=== PATIENT | male | born 1970 | race Caucasian/White ===

== ENCOUNTER → 2016-09-05 | Outpatient (CLI) | payer OTHER ==
[~2016-09-05] MED LIST: ASPCH81 PO; ASPEC325 PO; HYDR25TA4 PO; KETO10TA PO; MULTTAB58 PO; OMEG10007 PO; OXYC-57 PO; PROP20TA67 PO; super beta prostate PO
--- NOTE | 2016-09-05 08:16 | DIAGNOSTIC IMAGING REPORT ---
PET/CT SKULL-THIGH CLINICAL HISTORY: LYMPHOMA COMPARISON STUDY: 06/06/2016 FINDINGS: The patient was injected with 14.6 mCi of F 18 labeled FDG. Following the standard induction phase, PET/CT scanning was performed from the skull base the upper thigh region. Activity within neck is felt to be physiologic. The previously identified FDG avid cervical lymph nodes are no longer evident. There is mild tonsillar activity without evidence of discrete mass. This may be physiologic. Within the chest, there is no pathologic rebecca or parenchymal activity. Within the abdomen and pelvis, there is physiologic urinary tract and bowel activity. There is no pathologic hepatic activity. There are persistent mildly FDG avid left iliac chain lymph nodes. These remain similar in size the preceding examination and remains mildly FDG avid. The study is somewhat limited from a technical standpoint due to the patient's large body habitus. IMPRESSION: 1. Interval resolution of the pathologic FDG activity within cervical lymph nodes 2. No significant change in the mildly FDG avid left iliac chain lymph nodes. Electronically signed by: Kyle Kilpatrick M.D. 09/05/2016 8:14 AM
== END | disposition home or self-care (01) ==
LOC: C.PET 06:10
PROVIDERS: ATTEND Internal Medicine Hematology & Oncology
DX: C81.71 Other Hodgkin lymphoma, lymph nodes of head, face, and neck (principal)

== ENCOUNTER → 2016-11-07 | Outpatient (CLI) | payer OTHER ==
--- NOTE | 2016-11-07 18:01 | DIAGNOSTIC IMAGING REPORT ---
MRI OF THE RIGHT KNEE CLINICAL HISTORY: Right knee pain. COMPARISON STUDY: No priors. TECHNIQUE: MRI of the right knee was performed utilizing proton density, T1, and T2-weighted sequences in the axial, sagittal, coronal planes. IV contrast was not administered for this examination. Note that interpretation is suboptimal without plain film correlate. FINDINGS: Menisci: The body of the medial meniscus appears slightly truncated and intrasubstance tearing is suspected involving the body and posterior horn. This does not clearly extend to the articular surface. No flipped fragment is identified. The lateral meniscus is Intact. Ligaments: Findings are consistent with rupture of the anterior cruciate ligament. The posterior cruciate ligament is intact. There is fluid seen on both sides of the medial collateral ligament suggesting strain. The fibers of the ligament are intact. The lateral collateral complex is preserved. Extensor mechanism: The extensor mechanism is intact. Hoffa's fat pad is normal in appearance. Articular cartilage and bone: The articular cartilage is intact and well maintained all 3 compartments. Bony contusion is seen within the posterior aspect of the tibial plateau both medially and laterally. There is no MRI evidence of fracture. Joint effusion: There is a small joint effusion. Soft tissues: The musculature surrounding the knee joint is normal in bulk and signal intensity. IMPRESSION: 1. Findings are consistent with rupture of the anterior cruciate ligament. 2. Suspect intrasubstance tearing involving the body and posterior horn of the medial meniscus. 3. There are bony contusions identified within the posterior tibia. 4. Fluid on both sides of the medial collateral ligament suggests strain. The fibers are intact. 5. Small joint effusion. 6. The posterior cruciate ligament, the lateral collateral ligament complex, and the lateral meniscus are preserved. Electronically signed by: Agustín Bennett M.D. 11/07/2016 5:59 PM Dictated Date/Time: 11/07/2016 5:53 PM
== END | disposition home or self-care (01) ==
LOC: C.MRIBC 16:39
PROVIDERS: ATTEND Orthopaedic Surgery
DX: S83.511A Sprain of anterior cruciate ligament of right knee, initial encounter (principal); X58.XXXA Exposure to other specified factors, initial encounter; M25.461 Effusion, right knee

== ENCOUNTER → 2016-11-21 | Day surgery (SDC) | payer OTHER ==
[2016-11-14 11:19] VITALS: Ht 177.8 cm; Wt 134.7 kg
--- NOTE | 2016-11-14 11:54 | PAT Medication Instructions ---
Service Date Nov 14, 2016. Current Home Medication List Aspirin (Aspirin Tab-Chewable *), 81 MG PO QAM Fish Oil (Powell-3), 1 CAP PO QAM Hydrochlorothiazide (Hctz), 25 MG PO QAM Multiple Vitamin (Multivitamin), 1 TAB PO QAM Propranolol (Inderal), 40 MG PO QAM [super beta prostate], 1 TAB PO QAM Medication Instructions For Your Scheduled Surgery - Check with surgeon for instructions: Aspirin (Aspirin Tab-Chewable *), 81 MG PO QAM - Hold the following medications starting 11/15/16: Fish Oil (Powell-3), 1 CAP PO QAM - Hold the following medications the morning of surgery: [super beta prostate], 1 TAB PO QAM Hydrochlorothiazide (Hctz), 25 MG PO QAM Multiple Vitamin (Multivitamin), 1 TAB PO QAM - Take the following medications the morning of surgery with a sip of water: Propranolol (Inderal), 40 MG PO QAM If you have any questions please call us at [phone] (Afsaneh Sherwood PA-C) or [phone] or [phone]
[2016-11-14 12:48] LABS: HEMATOCRIT 44.3 % (42-52); MEAN CORPUSCULAR HEMOGLOBIN 29.3 pg (25-34); MEAN CORPUSCULAR HGB CONC 36.1 g/dl (32-36); MEAN PLATELET VOLUME 10.9 fL (7.4-10.4); PLATELET COUNT 199 K/uL (130-400); RED BLOOD COUNT 5.47 M/uL (4.7-6.1); WHITE BLOOD COUNT 6.47 K/uL (4.8-10.8)
[2016-11-14 13:06] LABS: CREATININE 1.2 mg/dl (0.60-1.40); POTASSIUM 3.6 mmol/L (3.5-5.1)
[~2016-11-21] VITALS: Ht 177.8 cm; Wt 134.7 kg
[~2016-11-21] MED LIST changes: +ATROPINE SULFATE 0.1 MG/ML 5ML SYR IV PRN; +CEFAZOLIN 2000 MG/60 ML D5W IV SCH; +EpINEphrine INJ 1MG/ML AMP 1 MG/ML AMP ONE; +FENTANYL CITRATE INJ 50 MCG/1 ML 2 ML VIAL ONE; +GLYCOPYRROLATE INJ 0.2 MG/ML VIAL ONE; +HYDROmorphone INJ 0.5 MG/0.5 ML SYR ONE; +KETOROLAC TROMETHAMINE 30 MG/ML VIAL IV. PRN; +KETOROLAC TROMETHAMINE 30 MG/ML VIAL ONE; +LABETALOL HCL IV 5 MG/ML 20ML IV PRN; +LACTATED RINGER'S 1000ML 1,000 ML IV SCH; +LACTATED RINGER'S 1000ML 500 ML IV ONE; +LIDOCAINE HCL 2% 2 ML VIAL (20MG/ML) ONE; +MIDAZOLAM HCL 1 MG/ML 2ML VIAL ONE; +ONDANSETRON INJ 2 MG/ML 2 ML VIAL IV PRN; +OXYCODONE/ACETAMINOPHEN 5-325 TAB PO PRN; +PROPOFOL IV EMULSION 10 MG/ML 20 ML VIAL IV ONE; +ROCURONIUM BROMIDE 10 MG/ML 5 ML VIAL ONE; +ROPIVACAINE 0.5% 5 MG/ML 30 ML VIAL ONE; +SODIUM CHLORIDE 0.9% 1000ML 1,000 ML IV SCH; +VANCOMYCIN HCL 1000MG/20ML VIAL IV SCH; +VANCOMYCIN INJ 2,000 MG in SODIUM CHLORIDE 0.9% 500ML 500 ML IV SCH; +WATER, STERILE FOR INJ 10 ML VIAL ONE
--- NOTE | 2016-11-21 09:07 | History & Physical Bridge - [place] ---
H&P Re-Evaluation Bridge Note: I have examined the patient, reviewed the History & Physical and in the interval since the performance of the History & Physical I have noted the following changes of clinical significance: No changes noted
--- NOTE | 2016-11-21 13:37 | Discharge Instructions-SurgCtr ---
Discharge Instructions Date of Service Nov 21, 2016. Visit Reason for Visit: Right Knee Acl Rupture Discharge Discharge Diagnosis / Problem: RIGHT ACL TEAR Discharge Goals Goal(s): Improve function, Therapeutic intervention Medications Stopped Medications Name(s): FISH OIL Activity Recommendations Activity Limitations: per Instructions/Follow-up section Weightbearing Status: Right weightbearing (as tolerated WITH BRACE ) Anesthesia . Post Anesthesia Instructions: If you have had General Anesthesia or IV Sedation: * Do not drive today. * Resume driving when surgeon permits. * Do not make important decisions or sign legal documents today. * Call surgeon for: 1. Temperature elevations greater than 101 degrees F. 2. Uncontrollable pain. 3. Excessive bleeding. 4. Persistent nausea and vomiting. 5. Medication intolerance (nausea, vomiting or rash). * For nausea and vomiting use only clear liquids such as: tea, soda, bouillon until nausea subsides, then gradually increase diet as tolerated. * If you have any concerns or questions, call your surgeon's office. If physician is unavailable and it is an emergency, call 911 or go to the nearest emergency room. . Instructions / Follow-Up Instructions / Follow-Up MEDICATIONS: * Resume previous medications unless instructed otherwise by your surgeon. * Always take pain medication on a full stomach or with food to avoid upset stomach. * Do not drink alcohol or drive while taking narcotics. * Ibuprofen or Tylenol may be taken if narcotic not needed. NO IBUPROFEN WHILE TAKING TORADOL SPECIAL CARE INSTRUCTIONS: __ None _X_ Keep extremity elevated and iced x 48 hours; apply ice 20-30 minutes 8-10 times/day. May remove at night. _X_ Crutches __ May discard when able _X_ Brace/Post-op shoe __ 24 hrs/day __ Remove at night _X_ Dressing __ Maintain until seen in office, may shower with plastic over site _X_ Remove dressings in 24-48 hours and then may shower _X_ Cover incisions with band-aids after showering _X_ Do not remove steri-strips Call physician if chills or temperature rises above 102 degrees or pain unrelieved by prescribed pain medications. Office [phone] FOLLOW UP IN 2 WEEKS Diet Recommendations Home Diet: no limitations Procedures Procedures Performed: Right Knee Arthroscopy, Anterior Cruciate Ligament Reconstruction, Hamstring Autograft With Anterior Tibialis Supplementation, Partial Medial Menisectomy Pending Studies Studies pending at discharge: no Medical Emergencies . Who to Call and When: Medical Emergencies: If at any time you feel your situation is an emergency, please call 911 immediately. . Non-Emergent Contact Non-Emergency issues call your: Primary Care Provider, Surgeon . . "Provider Documentation" section prepared by Isrrael Landrum.
[2016-11-21] MEDS: HYDROmorphone INJ 2 MG/ML SYR/VIAL IV PRN ×2 (13:47→13:55)
[2016-11-21 14:44] VITALS: TEMP 37.2
[2016-11-21 15:09] VITALS: BP 129/94; PULSE 73; O2SAT 98
--- NOTE | 2016-11-21 15:17 | Anesthesia Progress Nt - [facility] ---
Anesthesia Post Op Note Date & Time Nov 21, 2016 at 15:18 Vital Signs Pain Intensity: 4 Vital Signs Past 12 Hours Date Time Temp Pulse Resp B/P Pulse Ox O2 Delivery O2 Flow Rate FiO2 11/21/16 15:09 73 18 129/94 98 Room Air 11/21/16 14:44 37.2 70 20 160/106 97 Room Air 11/21/16 14:26 77 17 11/21/16 14:26 76 17 97 11/21/16 14:25 162/90 11/21/16 14:25 168/98 11/21/16 14:24 37.0 69 18 168/98 95 Room Air 11/21/16 14:21 79 20 11/21/16 14:21 79 20 96 11/21/16 14:20 136/96 11/21/16 14:16 75 26 97 11/21/16 14:16 76 26 11/21/16 14:15 142/85 11/21/16 14:11 79 13 11/21/16 14:11 77 13 100 11/21/16 14:10 151/84 11/21/16 14:06 70 23 100 11/21/16 14:06 73 23 11/21/16 14:05 143/85 11/21/16 14:04 73 18 99 11/21/16 14:04 72 18 11/21/16 14:00 155/93 11/21/16 13:59 75 12 100 11/21/16 13:59 75 12 11/21/16 13:55 136/80 11/21/16 13:54 80 18 11/21/16 13:54 83 18 100 11/21/16 13:50 148/84 11/21/16 13:49 83 19 11/21/16 13:49 82 19 100 11/21/16 13:45 150/95 11/21/16 13:44 68 18 11/21/16 13:44 67 18 100 11/21/16 13:40 152/94 11/21/16 13:39 66 17 100 11/21/16 13:39 65 17 11/21/16 13:35 171/102 11/21/16 13:34 73 16 11/21/16 13:34 73 16 99 11/21/16 13:34 37.4 92 20 140/107 99 Diffusion Mask 6 11/21/16 11:05 64 16 129/79 99 Diffusion Mask 5 11/21/16 08:16 36.5 69 16 154/129 95 Room Air Notes Mental Status: alert / awake / arousable, participated in evaluation Pt Amnestic to Procedure: Yes Nausea / Vomiting: adequately controlled Pain: adequately controlled Airway Patency, RR, SpO2: stable & adequate BP & HR: stable & adequate Hydration State: stable & adequate Anesthetic Complications: no major complications apparent
--- NOTE | 2016-11-21 16:29 | [facility] Post Operative Brief Note ---
Immediate Operative Summary Operative Date Nov 21, 2016. Pre-Operative Diagnosis Right Knee Anterior Cruciate Ligament Rupture Post-Operative Diagnosis Same + medial meniscus tear + DJD Procedure(s) Performed Right Knee Arthroscopy, Anterior Cruciate Ligament Reconstruction, Hamstring Autograft With Anterior Tibialis Allograft Supplementation, Partial Medial Menisectomy Surgeon Dr. Darya Isidro Monumental Stonemason Surgeon(s) Chencho Landrum PA-C Estimated Blood Loss Minimal Findings ACL Tear + Medial Meniscus Tear + DJD Specimens None Anesthesia General Complication(s) None Disposition Recovery Room / PACU
--- NOTE | 2016-11-21 23:38 | OPERATIVE REPORT ---
DATE OF OPERATION: 11/21/2016 SURGEON: Dr. Alcon Isidro. CAT[employer]ULT AND ARRESTING GEAR OFFICER: BRAXTON Cisneros. PREOPERATIVE DIAGNOSES: 1. Right anterior cruciate ligament deficient knee. 2. Right knee mild degenerative arthritis. POSTOPERATIVE DIAGNOSES: 1. Right knee anterior cruciate ligament deficient knee. 2. Right knee mild degenerative joint disease. 3. Right knee medial meniscus tear. PROCEDURE PERFORMED: 1. Right knee exam under anesthesia. 2. Right knee diagnostic arthroscopy. 3. Right knee arthroscopic partial medial meniscectomy. 4. Right knee arthroscopic ACL reconstruction with gracilis autograft supplemented with tibialis anterior allograft. COMPLICATIONS: None. ESTIMATED BLOOD LOSS: Minimal. TOURNIQUET TIME: 73 minutes at 300 mmHg. ANESTHESIA: General with adductor canal block. DRAINS: None. SPECIMENS: None. OPERATIVE INDICATIONS: The patient is a 46-year-old fairly active gentleman who injured his knee about a month ago skiing out in [place]. He was seen in clinic and diagnosed with an ACL tear which was confirmed by MRI. Treatment options were explained. The patient strongly desiring surgical reconstruction. OPERATIVE FINDINGS: Examination under anesthesia of the right knee revealed just very small knee effusion. His range of motion was full extension to 135 degrees of flexion. He had a positive Shilpa, grade 2 pivot, negative anterior drawer, negative posterior drawer, no varus or valgus instability, Lizeth's is negative for mechanical symptoms. There is no posterolateral rotatory instability. ARTHROSCOPIC FINDINGS: Arthroscopic findings revealed small knee effusion. He had diffuse grade 2 changes of the undersurface of the patella. The trochlea was well preserved. In the intercondylar notch, the ACL was torn near the femoral origin. PCL was intact. In the medial compartment, there were some diffuse grade 2 changes of the medial femoral condyle. He did have a small inner rim medial meniscus tear. In the lateral compartment, the articular surface revealed some age-related changes. There was some slight fraying of the inner rim of the meniscus but no tearing. OPERATIVE PROCEDURE: The patient was taken to the operating room, identified and placed on the operating table in supine position. All contact areas were appropriately padded. IV antibiotics were provided by anesthesia team. An adductor canal block had been provided in the holding area. A right thigh tourniquet was then placed. The right knee was then examined under anesthesia with findings as described above. The right leg was then prepped and draped in the usual sterile fashion. The right leg was elevated and exsanguinated with Esmarch and tourniquet was placed at 300 mmHg. Attention was first drawn toward harvesting the hamstring tendons. A 4 cm incision was made directly over the hamstring tendons at its insertion. Sharp dissection was carried out through the subcutaneous tissues down to the level of the sartorius fascia. The subcutaneous tissues were mobilized circumferentially. An oblique incision was made in the sartorius fascia above the hamstring tendons. The tendons were then taken sharply off the anterior face of the tibia. A #2 Ti-Cron whipstitch was placed in the end of each tendon. I then harvested the gracilis tendon and got a nice tendon. Upon pulling on the semitendinosis tendon even before I put the tendon stripper on, I pulled it and it just pulled right out of the leg. It was very short and amputated shortly above where the sutures were placed. The exact etiology of this was unclear as the tendon insertion seemed quite healthy and appropriate. In light of this, we elected to use the gracilis tendon and used the tibialis anterior allograft to act as the adjacent semitendinosis tendon. Tibialis anterior allograft was obtained. We trimmed this down to equal sides and just slightly bigger than the gracilis. #2 Ti-Cron whipstitch was placed down in the end of each tendon and they were cut to 21 cm in length. They were then folded over and fit snugly through a 9 tunnel. The graft was then placed on the graft board until ready for implantation. During graft preparation, routine right knee arthroscopy was then performed through typical anteromedial and anterolateral portals. A superolateral outflow portal was established for outflow. The remnant of the ACL was excised. Notchplasty was performed. Attention was then drawn to the medial compartment. With the use of motorized hand controlled instruments, the inner rim of the medial meniscus was excised. This was clearly in the white zone and was a fairly small piece. Once this was complete, attention was drawn to the ACL reconstruction. With the use of the tibial guide set at 50 degrees, a guidewire was placed in the area of the proposed femoral tunnel. This was overreamed with a 9 mm solid reamer. The tunnel was cleaned off all debris. A 7 mm over the top guide was placed through the anteromedial portal. The knee was maximally flexed. This was overdrilled with the Endobutton drill bit. The tunnel length measured 42 mm. A 20 mm closed loop Endobutton was selected. The femoral tunnel was then drilled for a distance of 30 mm. This was drilled with a 9 mm Montier reamer. The tunnels were cleaned off all debris. The graft was then looped over a 20 mm closed loop Endobutton. The Endobutton was used to pass the graft through the tibial tunnel up into the femoral tunnel and the Endobutton was then flipped. The knee was cycled several times and brought out into full extension. There was no impingement. The graft was then tensioned in full extension with 30 pounds of tension using the Intrafix tensioner. The tunnel was then dilated. A large Biocryl Intrafix sheath was placed followed by a 7/9 Biocryl Intrafix screw. This provided excellent fixation. The knee was examined. There was no Shilpa and no pivot. Arthroscope was placed back in the knee joint. The graft was appropriately tensioned in flexion and extension. The scope was then placed throughout the knee and all extraneous debris was removed. The arthroscopic instruments were then removed from the joint. The portals were then closed with 3-0 Prolene suture in a simple fashion. The knee was injected with 30 mL of 0.5% ropivacaine with epinephrine and 30 mg of Toradol. The tourniquet was then let down for a final tourniquet time of 73 minutes. The tibial wound was then irrigated. The sartorius fascia was then closed with #1 Vicryl suture in a [id number] fashion. The subcutaneous tissues were then closed with 2-0 Dexon suture in a buried interrupted fashion. Skin was closed with 3-0 Prolene suture in a subcuticular fashion. The leg was then cleaned and dried, and a sterile dressing of Steri-Strip, Xeroform, 4 x 4's, ABD pad, sterile cast padding, Matthew bandage, cold pack and knee immobilizer were applied. The patient then brought out of general anesthesia and transferred to the recovery room in stable condition. The patient tolerated the procedure well with no complications. All needle and sponge counts were correct at the end of the operation. I attest to the content of the Intraoperative Record and any orders documented therein. Any exceptions are noted below. MTDD
== END | disposition home or self-care (01) ==
LOC: X.SURG 06:54
PROVIDERS: ATTEND Orthopaedic Surgery Sports Medicine
DX: S83.511A Sprain of anterior cruciate ligament of right knee, initial encounter (principal); S83.241A Other tear of medial meniscus, current injury, right knee, initial encounter; M17.11 Unilateral primary osteoarthritis, right knee; I10 Essential (primary) hypertension; K21.9 Gastro-esophageal reflux disease without esophagitis; C81.90 Hodgkin lymphoma, unspecified, unspecified site; Y93.23 Activity, snow (alpine) (downhill) skiing, snowboarding, sledding, tobogganing and snow tubing; Y92.89 Other specified places as the place of occurrence of the external cause; Y99.8 Other external cause status; Z88.8 Allergy status to other drugs, medicaments and biological substances

== ENCOUNTER → 2017-01-02 | Outpatient (CLI) | payer OTHER ==
[~2017-01-02] MED LIST changes: -ASPCH81 PO; -ATROPINE SULFATE 0.1 MG/ML 5ML SYR IV PRN; -CEFAZOLIN 2000 MG/60 ML D5W IV SCH; -EpINEphrine INJ 1MG/ML AMP 1 MG/ML AMP ONE; -FENTANYL CITRATE INJ 50 MCG/1 ML 2 ML VIAL ONE; -GLYCOPYRROLATE INJ 0.2 MG/ML VIAL ONE; -HYDROmorphone INJ 0.5 MG/0.5 ML SYR ONE; -KETO10TA PO; -KETOROLAC TROMETHAMINE 30 MG/ML VIAL IV. PRN; -KETOROLAC TROMETHAMINE 30 MG/ML VIAL ONE; -LABETALOL HCL IV 5 MG/ML 20ML IV PRN; -LACTATED RINGER'S 1000ML 1,000 ML IV SCH; -LACTATED RINGER'S 1000ML 500 ML IV ONE; -LIDOCAINE HCL 2% 2 ML VIAL (20MG/ML) ONE; -MIDAZOLAM HCL 1 MG/ML 2ML VIAL ONE; -ONDANSETRON INJ 2 MG/ML 2 ML VIAL IV PRN; -OXYCODONE/ACETAMINOPHEN 5-325 TAB PO PRN; -PROPOFOL IV EMULSION 10 MG/ML 20 ML VIAL IV ONE; -ROCURONIUM BROMIDE 10 MG/ML 5 ML VIAL ONE; -ROPIVACAINE 0.5% 5 MG/ML 30 ML VIAL ONE; -SODIUM CHLORIDE 0.9% 1000ML 1,000 ML IV SCH; -VANCOMYCIN HCL 1000MG/20ML VIAL IV SCH; -VANCOMYCIN INJ 2,000 MG in SODIUM CHLORIDE 0.9% 500ML 500 ML IV SCH; -WATER, STERILE FOR INJ 10 ML VIAL ONE
[2017-01-02 12:09] LABS: BASO % 0.4 %; BASO ABS # 0.03 K/uL (0-0.2); COMPLETE YES; HEMATOCRIT 44.2 % (42-52); IG% 0.3 %; LYMPH % 18.8 %; LYMPH ABS # 1.44 K/uL (1.2-3.4); MEAN CELL VOLUME 84.8 fL (80-100); MEAN CORPUSCULAR HEMOGLOBIN 29.6 pg (25-34); MEAN CORPUSCULAR HGB CONC 34.8 g/dl (32-36); MEAN PLATELET VOLUME 11.4 fL (7.4-10.4); MONO % 8.9 %; NEUT % 67.6 %; PLATELET COUNT 181 K/uL (130-400); RED BLOOD COUNT 5.21 M/uL (4.7-6.1); WHITE BLOOD COUNT 7.67 K/uL (4.8-10.8)
[2017-01-02 12:26] LABS: ALT/SGPT 45 U/L (12-78); AST/SGOT 16 U/L (15-37); BLOOD UREA NITROGEN 21 mg/dl (7-18); BUN/CREATININE RATIO 16.2 (10-20); CALCIUM 8.9 mg/dl (8.5-10.1); CARBON DIOXIDE 31 mmol/L (21-32); CHLORIDE 105 mmol/L (98-107); GLUCOSE 130 mg/dl (70-99); POTASSIUM 3.8 mmol/L (3.5-5.1); SODIUM 140 mmol/L (136-145)
[2017-01-02 12:30] LABS: ALB/GLOB RATIO 1.3 (0.9-2); ALKALINE PHOSPHATASE 80 U/L (45-117)
== END | disposition home or self-care (01) ==
LOC: C.LAB 10:54
PROVIDERS: ATTEND Internal Medicine Hematology & Oncology
DX: C81.71 Other Hodgkin lymphoma, lymph nodes of head, face, and neck (principal)

== ENCOUNTER → 2017-01-03 | Outpatient (CLI) | payer OTHER ==
[~2017-01-03] MED LIST changes: +OPTIRAY 320 IV PRN
--- NOTE | 2017-01-03 16:11 | DIAGNOSTIC IMAGING REPORT ---
ABDOMEN AND PELVIS CT WITH IV AND ORAL CONTRAST CT DOSE: 1630.19 mGy.cm HISTORY: Lymphoma LYMPHOMA TECHNIQUE: Multiaxial CT images of the abdomen and pelvis were performed following the use of intravenous and oral contrast. COMPARISON STUDY: PET scan dated 09/05/2016 FINDINGS: Lung bases are clear. Liver shows mild fatty infiltration. Spleen is unremarkable. Pancreas gallbladder and kidneys are within normal limits. There are several small left iliac chain and low Aortic nodes unchanged from the prior study. There is no significant inguinal adenopathy. Bowel pattern is nonobstructive throughout. Mesentery is unremarkable. IMPRESSION: Stable examination of the abdomen and pelvis compared to the patient's prior PET/CT scan. Several small nodes of the low periaortic and left pelvic region unchanged. Electronically signed by: Homer Pat M.D. 01/03/2017 4:09 PM Dictated Date/Time: 01/03/2017 4:07 PM
== END | disposition home or self-care (01) ==
LOC: C.CTS 15:32
PROVIDERS: ATTEND Internal Medicine Hematology & Oncology
DX: C81.71 Other Hodgkin lymphoma, lymph nodes of head, face, and neck (principal)

== ENCOUNTER → 2017-07-01 | Outpatient (CLI) | payer OTHER ==
[~2017-07-01] MED LIST changes: -OXYC-57 PO
--- NOTE | 2017-07-01 15:22 | DIAGNOSTIC IMAGING REPORT ---
SOFT TISSUE NECK WITH CLINICAL HISTORY: X lymphoma TECHNIQUE: Transaxial acquisition with multi axial reformatted images COMPARISON STUDY: 05/27/2015 FINDINGS: The palpable nodular density previously described in the left soft tissue neck has resolved. Major salivary glands currently including parotid and submandibular glands appear unremarkable. There is no significant residual rebecca change. Structures the glottic and subglottic regions are unremarkable. There is no significant cervical adenopathy. IMPRESSION: Negative study. Adenopathy previously described has resolved. No acute process. The above report was generated using voice recognition software. It may contain grammatical, syntax or spelling errors. Electronically signed by: Homer Pat M.D. 07/01/2017 3:20 PM Dictated Date/Time: 07/01/2017 3:16 PM
--- NOTE | 2017-07-01 15:27 | DIAGNOSTIC IMAGING REPORT ---
CT SCAN OF THE CHEST, ABDOMEN, AND PELVIS WITH IV CONTRAST CLINICAL HISTORY: Lymphoma. COMPARISON STUDY: PET/CT dated 09/05/2016. Abdominal CT dated 01/03/2017. Chest x-ray dated 07/28/2006. TECHNIQUE: Following the IV administration of 119 of Optiray 320, CT scan of the chest, abdomen, and pelvis was performed from the thoracic inlet to the proximal femora. Images are reviewed in the axial, sagittal, and coronal planes. IV contrast was administered without complication. Automated dose control exposure was utilized. A dose lowering technique was utilized adhering to the principles of ALARA. FINDINGS: CHEST: Thyroid: Imaged portions of the thyroid gland are normal in size and attenuation. Thoracic aorta: The thoracic aorta is normal in caliber and demonstrates standard 3-vessel arch anatomy. No dissection is seen. Pulmonary vasculature: The pulmonary trunk is normal in caliber. There are no filling defects identified in the central pulmonary vessels to indicate pulmonary embolus. Note that this examination was not protocoled for evaluation of the pulmonary arteries. Heart: The heart is normal in size and configuration, and without pericardial effusion. Lungs and pleural spaces: There is a 2 mm left apical pulmonary nodule seen on image #50. This is of low suspicion and unchanged from the 09/05/2016 PET examination. The lungs and pleural spaces are otherwise clear. The trachea and central airways are patent. Mediastinum: There is no mediastinal lymphadenopathy. Sanna: Clear. Axillae: There is no axillary lymphadenopathy. Bony thorax: No lytic or blastic lesions are identified. ABDOMEN AND PELVIS: Liver: The contrast-enhanced liver is enlarged, measuring 22 cm in length. The liver demonstrates diffusely diminished attenuation consistent with hepatic steatosis. There is no intrahepatic or ductal dilatation. The hepatic veins and portal veins are patent. Gallbladder: Unremarkable. Spleen: Normal in size and attenuation, measuring 12.7 cm in length. Pancreas: Unremarkable. Adrenal glands: Unremarkable. Kidneys: The contrast enhanced kidneys are normal in size and without hydronephrosis. Scattered subcentimeter cortical hypodensities likely represent cysts but are too small for definitive characterization. 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 The kidneys enhance symmetrically. Abdominal vasculature: The abdominal aorta is normal in course and caliber noting mild atherosclerotic calcification. Bowel: The small bowel and colon are normal in course and caliber. The appendix is well-visualized and normal. Peritoneum: There is no intraperitoneal free air or abdominal ascites. There is a small fat-containing umbilical hernia. Lymphadenopathy: There is no upper abdominal or mesenteric lymphadenopathy. There are mildly enlarged left iliac chain lymph nodes. A left iliac node on image #268 measures 1.6 x 1.2 cm. A left iliac node on image #297 measures 1.9 x 1.1 cm. No right iliac chain lymphadenopathy is identified. There is no pelvic sidewall or inguinal lymphadenopathy.. Pelvic viscera: The bladder, prostate, and seminal vesicles are normal as visualized. Skeletal structures: No lytic or blastic lesions are seen. Sclerotic change is noted in the sacroiliac joints. IMPRESSION: 1. There are no pathologically enlarged lymph nodes identified in the thorax. 2. The lungs are clear. 3. Mildly enlarged left iliac chain lymph nodes are similar in appearance to the 01/03/2017 examination. 4. No progressive lymphadenopathy is seen in the abdomen or pelvis. 5. The spleen is normal in size. 6. Hepatomegaly and hepatic steatosis. 7. Additional findings as above. Electronically signed by: Agustín Bennett M.D. 07/01/2017 3:26 PM Dictated Date/Time: 07/01/2017 3:15 PM
== END | disposition home or self-care (01) ==
LOC: C.CTS 14:47
PROVIDERS: ATTEND Internal Medicine Hematology & Oncology
DX: C81.71 Other Hodgkin lymphoma, lymph nodes of head, face, and neck (principal); R59.1 Generalized enlarged lymph nodes; R16.0 Hepatomegaly, not elsewhere classified; K76.0 Fatty (change of) liver, not elsewhere classified

== ENCOUNTER → 2017-07-11 | Outpatient (CLI) | payer OTHER ==
[~2017-07-11] MED LIST changes: -OPTIRAY 320 IV PRN
[2017-07-11 10:08] LABS: BASO % 0.2 %; BASO ABS # 0.02 K/uL (0-0.2); COMPLETE YES; EOS % 2.7 %; HEMATOCRIT 43.2 % (42-52); IG% 0.4 %; LYMPH % 16.4 %; LYMPH ABS # 1.32 K/uL (1.2-3.4); MEAN CORPUSCULAR HEMOGLOBIN 29.5 pg (25-34); MEAN CORPUSCULAR HGB CONC 34.7 g/dl (32-36); MONO % 7.6 %; NEUT % 72.7 %; PLATELET COUNT 177 K/uL (130-400); RED BLOOD COUNT 5.08 M/uL (4.7-6.1); WHITE BLOOD COUNT 8.05 K/uL (4.8-10.8)
[2017-07-11 10:39] LABS: ALT/SGPT 38 U/L (12-78); BLOOD UREA NITROGEN 23 mg/dl (7-18); BUN/CREATININE RATIO 20.1 (10-20); CALCIUM 8.9 mg/dl (8.5-10.1); CARBON DIOXIDE 27 mmol/L (21-32); CHLORIDE 104 mmol/L (98-107); CHOLESTEROL 184 mg/dl (0-200); CREATININE 1.13 mg/dl (0.60-1.40); GLUCOSE 165 mg/dl (70-99); MAGNESIUM 2.3 mg/dl (1.8-2.4); POTASSIUM 3.9 mmol/L (3.5-5.1); SODIUM 138 mmol/L (136-145); TRIGLYCERIDES 215 mg/dl (0-150); VERY LOW DENSITY LIPOPROT CALC 43 mg/dl
[2017-07-11 10:48] LABS: ALB/GLOB RATIO 1.1 (0.9-2); ALKALINE PHOSPHATASE 82 U/L (45-117); AST/SGOT 18 U/L (15-37); CHOLESTEROL/HDL RATIO 4.7; HDL CHOLESTEROL 39 mg/dl; LDL CHOLESTEROL CALCULATED 102 mg/dl; PROSTATE SPECIFIC ANTIGEN 0.696 ng/ml (0.000-4.000); T3 TOTAL 1.18 ng/ml (0.60-1.81); THYROXINE (T4) 8.5 mcg/dl (4.5-10.9)
== END | disposition home or self-care (01) ==
LOC: C.LAB1850 08:57
PROVIDERS: ATTEND General Practice
DX: E03.9 Hypothyroidism, unspecified (principal); E11.69 Type 2 diabetes mellitus with other specified complication; E78.5 Hyperlipidemia, unspecified; D64.9 Anemia, unspecified; N42.9 Disorder of prostate, unspecified; E27.9 Disorder of adrenal gland, unspecified

== ENCOUNTER → 2018-01-06 | Outpatient (CLI) | payer OTHER ==
[2018-01-06 17:56] LABS: BASO % 0.4 %; BASO ABS # 0.03 K/uL (0-0.2); EOS % 3.3 %; EOS ABS # 0.26 K/uL (0-0.5); HEMATOCRIT 42.1 % (42-52); IG# 0.01 K/uL (0.00-0.02); LYMPH ABS # 1.79 K/uL (1.2-3.4); MEAN CELL VOLUME 83.7 fL (80-100); MEAN CORPUSCULAR HEMOGLOBIN 29.8 pg (25-34); MEAN CORPUSCULAR HGB CONC 35.6 g/dl (32-36); MEAN PLATELET VOLUME 10.4 fL (7.4-10.4); MONO % 7.3 %; MONO ABS # 0.57 K/uL (0.11-0.59); NEUT % 65.9 %; NEUT ABS # 5.11 K/uL (1.4-6.5); PLATELET COUNT 171 K/uL (130-400); RED CELL DISTRIBUTION WIDTH CV 13.8 % (11.5-14.5); RED CELL DISTRIBUTION WIDTH SD 41.5 fL (36.4-46.3); WHITE BLOOD COUNT 7.77 K/uL (4.8-10.8)
[2018-01-06 18:14] LABS: ALBUMIN 3.9 gm/dl (3.4-5.0); ALT/SGPT 43 U/L (12-78); AST/SGOT 23 U/L (15-37); BLOOD UREA NITROGEN 16 mg/dl (7-18); CALCIUM 8.2 mg/dl (8.5-10.1); CARBON DIOXIDE 27 mmol/L (21-32); GLUCOSE 115 mg/dl (70-99); POTASSIUM 3.7 mmol/L (3.5-5.1); SODIUM 140 mmol/L (136-145)
[2018-01-06 18:17] LABS: ALKALINE PHOSPHATASE 77 U/L (45-117); TOTAL PROTEIN 6.9 gm/dl (6.4-8.2)
== END | disposition home or self-care (01) ==
LOC: C.LAB 17:27
PROVIDERS: ATTEND Internal Medicine Hematology & Oncology
DX: C81.71 Other Hodgkin lymphoma, lymph nodes of head, face, and neck (principal)

== ENCOUNTER 2023-10-01 23:21 | Observation (INO) ==
--- NOTE | 2023-10-01 23:40 | Emergency Department Note ---
Impression & Plan Stroke-like symptoms, Numbness and tingling of right arm ED Provider Note HISTORY OF PRESENT ILLNESS: Patient is a 53-year-old male presenting with slurred speech, gait instability and right arm weakness. Patient states he woke up from a nap at 2300 and had difficulty speaking and tried to get up and was very imbalanced. He states he has some weakness and numbness tingling in his right arm. He is on aspirin and Brilinta. He just had a cardiac stent placed recently. He states his last known well was 20-30, just before he took a nap. He states he had a TIA in July. Denies any chest pain or shortness of breath. Reports that earlier today he was having some heartburn and was not feeling well throughout the day, but his neuro symptoms started at 2300. He denies any recent fevers. Denies any recent head injury or chiropractic manipulation of his neck. ROS: as above PHYSICAL EXAM: Constitutional: Patient appears in no acute distress. HENT: Head: Normocephalic and atraumatic. Eyes: EOMI, PERRL Mouth/Throat: Mucous membranes moist. Neck: Trachea midline. Neck supple. Cardiovascular: RRR, No murmurs, rubs or gallops. Intact distal pulses. Pulmonary/Chest: No respiratory distress. Breath sounds clear and equal bilaterally. No wheezes or rales. Abdominal: Abdomen soft, no tenderness, rebound or guarding. Musculoskeletal: No edema, tenderness or deformity noted. Skin: Warm and dry. No rash, erythema, pallor or cyanosis Psychiatric: Appropriate mood and affect for situation. Neurological: Alert and keenly responsive. Facies symmetric. Able to raise eyebrows, close eyes, smile, puff mouth, stick out tongue, move tongue left and right and raise palate symmetrically. Able to shrug shoulders. PERRLA. SILT to forehead below eye and at jawline. Can hear soft noise bilaterally. Good finger to nose. Strength 5/5 in bilateral upper and lower extremities. SILT throughout bilateral upper and lower extremities. NIHSS 1 (RUE subjective numbness) MDM: - Vitals signs showed hypertension. - History obtained via patient and patient's . Patient presents with right- sided facial droop, right upper extremity numbness and weakness and gait instability. Patient reportedly was last known well at 2230. He woke up at 2300 with slurred speech and right-sided numbness and weakness. He apparently was having difficulties walking. He is on aspirin and Brilinta. He has a previous history of a TIA but no lasting deficits. He denies any chest pain or shortness of breath. Reports earlier today he was having some heartburn. - Chronic conditions affecting care: HTN; CAD (S/p PCI) - Differential diagnoses include, but are not limited to: TIA; intracranial hemorrhage; CVA; electrolyte abnormality; aortic dissection; ACS - Patient alerted as a stroke alert at 23:38, given LKW at 22:30. However, not a candidate for TNK, given his brilinta use and low NIHSS. - Called [facility] physician, Dr. Chawla at 00:00. She is evaluating patient at 00:05. - Order placed for continuous cardiac monitoring. At this time, monitor showed rate of 67 bpm with normal sinus rhythm, per my interpretation. - External medical records reviewed. Cardiology note dated 09/27/2023 was reviewed. Patient wore a Holter monitor in early July 2023 which showed sinus rhythm and 41 episodes of brief atrial tachycardia. He underwent cardiac catheterization on September 06 which revealed 80% proximal LAD stenosis and he had a stent placed at that time. - EKG interpreted by myself showed normal sinus rhythm. Rate 61 bpm. QTc 420. No acute ischemic changes - Laboratory workup interpreted by myself showed normal WBC; stable electrolytes; normal troponin - CT head wo contrast negative for acute intracranial hemorrhage, per my interpretation - CTA head/neck negative for large vessel occlusion, per radiology. - Telestroke, Dr. Chawla, recommended MRI brain with contrast (in light of Hodgkin's), MRI cervical spine w brachial plexus views, AM fasting lipid profile, ECHO and start low-dose statin tonight. - Discussion was had with primary care nurse about patient's case and need for admission - Hospitalist consulted for admission - [facility] 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 Radiation completed 05/17/2016 received 3600 cGy." On 03/30/16 13:26 Julio Cesar Solomon wrote "DIAGNOSIS: Nodular lymphocyte predominant hodgkins lymhoma, left neck, level IA, stage IA" Family History (Updated 09/06/23 @ 11:10 by Lilia Harris) Father Hypertension Myocardial infarction Mother Hypertension Stroke Social History (Updated 02/22/22 @ 12:56 by Joelle Levin MD) Smoking Status: Never smoker Preferred Language: Indonesian marital status: current occupational status: employed Feels Safe at Home: Yes Allergies Allergies Allergy/AdvReac Type Severity Reaction Status Date / Time azithromycin Allergy Intermediate Rash Verified 10/01/23 23:47 cephalexin Allergy Intermediate RASH / Verified 10/01/23 23:47 ITCHY clindamycin Allergy Intermediate RASH Verified 10/01/23 23:47 tamsulosin [From Flomax] AdvReac Severe BACK Verified 10/01/23 23:47 MUSCLES WEAKENED, PINCHING NERVES Home Meds Home Medications Medication Instructions Recorded Confirmed aspirin 81 mg tablet,delayed 81 mg PO DAILY 01/16/19 10/01/23 release docusate sodium 50 mg capsule 50 mg PO DAILY 09/06/23 10/01/23 (Colace Clear) nitroglycerin 0.4 mg sublingual 0.4 mg sublingual Q5M PRN Chest 09/11/23 10/01/23 tablet Pain propranolol 40 mg tablet 40 mg PO TID 09/11/23 10/01/23 ticagrelor 90 mg tablet (Brilinta) 90 mg PO BID 09/11/23 10/01/23 omega-3 fatty acids 1,000 mg 1,000 mg PO DAILY 10/01/23 10/01/23 capsule Results & Data (ED) Vital Signs Vital Signs - 24 hr 10/01/23 23:25 10/01/23 23:36 10/01/23 23:52 Temperature 36.1 C L Temperature Source Temporal Artery Scan Pulse Rate 86 62 64 Pulse Rate [Apical] Pulse Rate from SpO2 Sensor 64 Pulse Rhythm [Apical] Respiratory Rate 18 18 Respiratory Effort / Characteristics Non-Labored Respiratory Depth Normal Respiratory Pattern Blood Pressure 211/116 H 155/93 H Blood Pressure [Right Arm] Blood Pressure Mean 147 113 Blood Pressure Mean [Right Arm] Pulse Oximetry 97 98 Oxygen Delivery Method Room Air Room Air Sepsis Recent Fever Within 48 Hours No Sepsis New/Unexplained Change in Mental Status No Sepsis Action Taken by Nursing No Action Required 10/01/23 23:53 10/01/23 23:53 10/01/23 23:53 Temperature Temperature Source Pulse Rate 76 Pulse Rate [Apical] 64 Pulse Rate from SpO2 Sensor Pulse Rhythm [Apical] Regular Respiratory Rate 22 22 Respiratory Effort / Characteristics Non-Labored Respiratory Depth Normal Respiratory Pattern Regular Blood Pressure Blood Pressure [Right Arm] 155/93 H Blood Pressure Mean Blood Pressure Mean [Right Arm] 113 Pulse Oximetry 96 98 98 Oxygen Delivery Method Room Air Room Air Room Air Sepsis Recent Fever Within 48 Hours Sepsis New/Unexplained Change in Mental Status Sepsis Action Taken by Nursing 10/02/23 00:00 Temperature Temperature Source Pulse Rate 67 Pulse Rate [Apical] Pulse Rate from SpO2 Sensor 68 Pulse Rhythm [Apical] Respiratory Rate 19 Respiratory Effort / Characteristics Respiratory Depth Respiratory Pattern Blood Pressure 150/95 H Blood Pressure [Right Arm] Blood Pressure Mean 113 Blood Pressure Mean [Right Arm] Pulse Oximetry 98 Oxygen Delivery Method Room Air Sepsis Recent Fever Within 48 Hours Sepsis New/Unexplained Change in Mental Status Sepsis Action Taken by Nursing Laboratory Data 10/01/23 23:37 10/01/23 23:37 Lab Results 10/01/23 10/01/23 10/01/23 Range/Units 23:37 23:38 23:40 WBC 8.29 (4.8-10.8) K/ul RBC 4.95 (4.70-6.10) M/uL Hgb 15.0 (14.0-18.0) g/dl POC Hgb 14.6 (14.0-18.0) g/dl Hct 42.6 (42.0-52.0) % POC Hct 43 (42-52) % MCV 86.1 (80.0-100.0) fL MCH 30.3 (25.0-34.0) pg MCHC 35.2 (32.0-36.0) g/dL RDW Std Deviation 43.9 (36.4-46.3) fL RDW Coeff of Sylvia 13.9 (11.5-14.5) % Plt Count 178 (130-400) K/uL MPV 11.3 (9.4-12.4) fL PT 9.6 (9.0-12.0) Seconds INR 0.9 (0.9-1.1) APTT 25 (21-31) Seconds PTT Ratio 0.9 POC Sodium 141 (135-144) mmol/L Sodium 139 (136-145) mmol/L POC Potassium 3.8 (3.3-5.0) mmol/L Potassium 3.9 (3.5-5.1) mmol/L POC Chloride 103 (101-112) mmol/L Chloride 105 (98-107) mmol/L Carbon Dioxide 27 (21-32) mmol/L POC Total CO2 27 (24-31) mmol/L Anion Gap 7 (3-11) POC Anion Gap 15.0 L (16-25) mmol/L POC BUN 21 H (7-18) mg/dl BUN 21 (6-23) mg/dl Creatinine 1.23 (0.6-1.4) mg/dl POC Creatinine 1.3 (0.6-1.3) mg/dl Est Cr Clr Drug Dosing 86.3 ml/min Est GFR ( Amer) 76.1 ml/min Est GFR (Non-Af Amer) 65.7 ml/min BUN/Creatinine Ratio 17.1 (10-20) Glucose 119 H (70-99(Fasting)) mg/dl POC Glucose 146 H (70-99) mg/dl POC Glucose (other) 119 H (70-99) mg/dl Calcium 9.6 (8.6-10.3) mg/dl POC Ioniz Calcium Eleni 1.18 (1.12-1.32) mmol/l Magnesium 2.1 (1.7-2.4) mg/dl Total Bilirubin 0.4 (0.2-1.0) mg/dl AST 21 (13-39) U/L ALT 22 (7-52) U/L Alkaline Phosphatase 59 (34-104) U/L Troponin I High Sens 11.2 (0-20) pg/ml Total Protein 6.6 (6.0-8.3) gm/dl Albumin 4.4 (3.4-5.0) gm/dl Globulin 2.2 L (2.5-4.0) gm/dl Albumin/Globulin Ratio 2.0 (0.9-2) Administered Medications Discontinued Medications Ioversol (Optiray 320 125ml) 125 ml IV ONCE ONE Stop: 10/01/23 23:46 Last Admin: 10/01/23 23:47 Dose: 118 ml Documented By: KAVIN Imaging Data Radiologist's Impression: Head CT 10/01/23 23:29 CR Exam(s): CT HEAD Without Contrast EXAM: CT Head Without Intravenous Contrast CLINICAL HISTORY: Reason for exam: dizziness; R side numbness. TECHNIQUE: Axial computed tomography images of the head/brain without intravenous contrast. Automated exposure control was utilized for the study. A dose lowering technique was utilized adhering to the principles of ALARA. COMPARISON: 06/07/2011. FINDINGS: Brain: No acute stroke. No hemorrhage. No abnormal extra-axial fluid collection. No significant white matter disease. Ventricles: No hydrocephalus. No midline shift. Bones/joints: Unremarkable. No acute fracture. Soft tissues: Unremarkable. Sinuses: Unremarkable as visualized. No acute sinusitis. IMPRESSION: No acute abnormality. Communications: Call Doctor Stroke Electronically signed by: Phong Bowers M.D. 10/02/23 00:02 AM Head CTA 10/01/23 23:29 CR Exam(s): CTA HEAD With Contrast IV Amt: 118 ML [id number] EXAM: CT Angiography Head With Intravenous Contrast CLINICAL HISTORY: Reason for exam: dizziness; R side numbness. TECHNIQUE: Axial computed tomographic angiography images of the head with intravenous contrast. CTDI is 37.51 mGy and DLP is 624.41 mGy-cm. Automated exposure control was utilized for the study. A dose lowering technique was utilized adhering to the principles of ALARA. MIP reconstructed images were created and reviewed. CONTRAST: Patient received 118 ML [id number] of IV contrast COMPARISON: No relevant prior studies available. FINDINGS: Right internal carotid artery: No acute findings. Intracranial segment is patent with no significant stenosis. No aneurysm. Right anterior cerebral artery: Unremarkable. No occlusion or significant stenosis. No aneurysm. Right middle cerebral artery: Unremarkable. No occlusion or significant stenosis. No aneurysm. Right posterior cerebral artery: Unremarkable. No occlusion or significant stenosis. No aneurysm. Left internal carotid artery: No acute findings. Intracranial segment is patent with no significant stenosis. No aneurysm. Left anterior cerebral artery: Unremarkable. No occlusion or significant stenosis. No aneurysm. Left middle cerebral artery: Unremarkable. No occlusion or significant stenosis. No aneurysm. Left posterior cerebral artery: Unremarkable. No occlusion or significant stenosis. No aneurysm. IMPRESSION: No large vessel occlusion. Communications: Call Doctor Stroke Electronically signed by: Elvin Cavazos MD 10/02/23 00:05 AM Neck CTA 10/01/23 23:29 CR Exam(s): CTA NECK With Contrast IV Amt: 118 ML OPTIRAY 320 EXAM: CT Angiography Neck With Intravenous Contrast CLINICAL HISTORY: Reason for exam: R sided weakness; dizziness. TECHNIQUE: Routine carotid CT angiography protocol was performed with intravenous contrast. NASCET criteria using the distal ICAs for comparison were used for evaluation of stenoses. CTDI is 37.51 mGy and DLP is 624.41 mGy-cm. Automated exposure control was utilized for the study. A dose lowering technique was utilized adhering to the principles of ALARA. MIP reconstructed images were created and reviewed. CONTRAST: Patient received 118 ML OPTIRAY 320 of IV contrast COMPARISON: None. FINDINGS: VASCULATURE: Right common carotid artery: Unremarkable. No occlusion or significant stenosis. No dissection. Right internal carotid artery: Unremarkable. Extracranial segment is patent with no occlusion or significant stenosis. No dissection. Right external carotid artery: Unremarkable. No occlusion. Right vertebral artery: Unremarkable. No occlusion or significant stenosis. No dissection. Left common carotid artery: Unremarkable. No occlusion or significant stenosis. No dissection. Left internal carotid artery: Unremarkable. Extracranial segment is patent with no occlusion or significant stenosis. No dissection. Left external carotid artery: Unremarkable. No occlusion. Left vertebral artery: Unremarkable. No occlusion or significant stenosis. No dissection. IMPRESSION: No large vessel occlusion. Communications: Call Doctor Stroke Electronically signed by: Elvin Cavazos MD 10/02/23 00:05 AM Discharge Plan Visit Data Chief Complaint: TIA Symptoms Stated Complaint: RT ARM TINGLING, SLURRED SPEECH, OFF BALANCE ED Provider: Cleo Fuller Discharge Problem: Stroke-like symptoms, Numbness and tingling of right arm Forms Stand Alone Forms: My [facility] [employer] Prescriptions Prescriptions: No Action Colace Clear 50 mg capsule 50 mg PO DAILY Brilinta 90 mg tablet 90 mg PO BID nitroglycerin 0.4 mg tablet, sublingual 0.4 mg sublingual Q5M PRN (Reason: Chest Pain) aspirin 81 mg Tablet,Delayed Release (Dr/Ec) 81 mg PO DAILY omega-3 fatty acids 1,000 mg Capsule 1,000 mg PO DAILY propranolol 40 mg tablet 40 mg PO TID Referrals Referrals: PCP,NO [Physician] -
[2023-10-01] MEDS ORDERED: OPTIRAY 320 125ml IV ONE (23:45)
[2023-10-01 23:54] LABS: iSTAT Creatinine 1.3 mg/dl (0.6-1.3); iSTAT Hemoglobin 14.6 g/dl (14.0-18.0); iSTAT Ionized Calcium 1.18 mmol/l (1.12-1.32); iSTAT Potassium 3.8 mmol/L (3.3-5.0)
[2023-10-01 23:58] LABS: Hematocrit (blood only) 42.6 % (42.0-52.0); Mean Corpuscular Hemoglobin 30.3 pg (25.0-34.0); Mean Corpuscular Hgb Conc 35.2 g/dL (32.0-36.0); Mean Corpuscular Volume 86.1 fL (80.0-100.0); Mean Platelet Volume 11.3 fL (9.4-12.4); Platelet Count 178 K/uL (130-400); RDW Coefficient of Variation 13.9 % (11.5-14.5); RDW Standard Deviation 43.9 fL (36.4-46.3); Red Blood Count 4.95 M/uL (4.70-6.10); White Blood Count 8.29 K/ul (4.8-10.8)
--- NOTE | 2023-10-02 00:03 | CT Scan Report ---
Exam(s): CT HEAD Without Contrast EXAM: CT Head Without Intravenous Contrast CLINICAL HISTORY: Reason for exam: dizziness; R side numbness. TECHNIQUE: Axial computed tomography images of the head/brain without intravenous contrast. Automated exposure control was utilized for the study. A dose lowering technique was utilized adhering to the principles of ALARA. COMPARISON: 06/07/2011. FINDINGS: Brain: No acute stroke. No hemorrhage. No abnormal extra-axial fluid collection. No significant white matter disease. Ventricles: No hydrocephalus. No midline shift. Bones/joints: Unremarkable. No acute fracture. Soft tissues: Unremarkable. Sinuses: Unremarkable as visualized. No acute sinusitis. IMPRESSION: No acute abnormality. Communications: Call Doctor Stroke Electronically signed by: Phong Bowers M.D. 10/02/23 00:02 AM
--- NOTE | 2023-10-02 00:06 | CT Scan Report ---
Exam(s): CTA NECK With Contrast IV Amt: 118 ML OPTIRAY 320 EXAM: CT Angiography Neck With Intravenous Contrast CLINICAL HISTORY: Reason for exam: R sided weakness; dizziness. TECHNIQUE: Routine carotid CT angiography protocol was performed with intravenous contrast. NASCET criteria using the distal ICAs for comparison were used for evaluation of stenoses. CTDI is 37.51 mGy and DLP is 624.41 mGy-cm. Automated exposure control was utilized for the study. A dose lowering technique was utilized adhering to the principles of ALARA. MIP reconstructed images were created and reviewed. CONTRAST: Patient received 118 ML OPTIRAY 320 of IV contrast COMPARISON: None. FINDINGS: VASCULATURE: Right common carotid artery: Unremarkable. No occlusion or significant stenosis. No dissection. Right internal carotid artery: Unremarkable. Extracranial segment is patent with no occlusion or significant stenosis. No dissection. Right external carotid artery: Unremarkable. No occlusion. Right vertebral artery: Unremarkable. No occlusion or significant stenosis. No dissection. Left common carotid artery: Unremarkable. No occlusion or significant stenosis. No dissection. Left internal carotid artery: Unremarkable. Extracranial segment is patent with no occlusion or significant stenosis. No dissection. Left external carotid artery: Unremarkable. No occlusion. Left vertebral artery: Unremarkable. No occlusion or significant stenosis. No dissection. IMPRESSION: No large vessel occlusion. Communications: Call Doctor Stroke Electronically signed by: Elvin Cavazos MD 10/02/23 00:05 AM
--- NOTE | 2023-10-02 00:06 | CT Scan Report ---
Exam(s): CTA HEAD With Contrast IV Amt: 118 ML [id number] EXAM: CT Angiography Head With Intravenous Contrast CLINICAL HISTORY: Reason for exam: dizziness; R side numbness. TECHNIQUE: Axial computed tomographic angiography images of the head with intravenous contrast. CTDI is 37.51 mGy and DLP is 624.41 mGy-cm. Automated exposure control was utilized for the study. A dose lowering technique was utilized adhering to the principles of ALARA. MIP reconstructed images were created and reviewed. CONTRAST: Patient received 118 ML [id number] of IV contrast COMPARISON: No relevant prior studies available. FINDINGS: Right internal carotid artery: No acute findings. Intracranial segment is patent with no significant stenosis. No aneurysm. Right anterior cerebral artery: Unremarkable. No occlusion or significant stenosis. No aneurysm. Right middle cerebral artery: Unremarkable. No occlusion or significant stenosis. No aneurysm. Right posterior cerebral artery: Unremarkable. No occlusion or significant stenosis. No aneurysm. Left internal carotid artery: No acute findings. Intracranial segment is patent with no significant stenosis. No aneurysm. Left anterior cerebral artery: Unremarkable. No occlusion or significant stenosis. No aneurysm. Left middle cerebral artery: Unremarkable. No occlusion or significant stenosis. No aneurysm. Left posterior cerebral artery: Unremarkable. No occlusion or significant stenosis. No aneurysm. IMPRESSION: No large vessel occlusion. Communications: Call Doctor Stroke Electronically signed by: Elvin Cavazos MD 10/02/23 00:05 AM
[2023-10-02 00:15] LABS: Albumin Level 4.4 gm/dl (3.4-5.0); BUN Creatinine Ratio 17.1 (10-20); Bilirubin,Total 0.4 mg/dl (0.2-1.0); Calcium 9.6 mg/dl (8.6-10.3); Creatinine Clr Calc Pharmacy 86.3 ml/min; Est GFR (African American) 76.1 ml/min; Est GFR (Non-African American) 65.7 ml/min; Globulin 2.2 gm/dl (2.5-4.0); Magnesium 2.1 mg/dl (1.7-2.4); Potassium 3.9 mmol/L (3.5-5.1); Total Protein 6.6 gm/dl (6.0-8.3)
[2023-10-02 00:34] LABS: INR 0.9 (0.9-1.1); Partial Thromboplastin Ratio 0.9; Partial Thromboplastin Time 25 Seconds (21-31); Prothrombin Time 9.6 Seconds (9.0-12.0)
[2023-10-02 00:58] LABS: Troponin I High Sensitivity 11.2 pg/ml (0-20)
--- NOTE | 2023-10-02 01:40 | History & Physical Report ---
Date of Service October 02, 2023 Assessment & Plan (1) Numbness and tingling of right arm: (2) Stroke-like symptoms: (3) Stented coronary artery: (4) Paroxysmal SVT (supraventricular tachycardia): (5) Ascending aorta dilatation: (6) Hypercholesterolemia: (7) Hypertensive disorder: (8) CAD (coronary artery disease): Plan Stroke Like Symptoms | History of Prior TIA -CTA head and neck without acute findings or evidence of large vessel disease -Telestroke contacted: recommended MRI brain with contrast (in light of Hodgkin's), MRI cervical spine w brachial plexus views, AM fasting lipid profile, ECHO and start statin -MRIs completed, results pending -Patient did have echo with bubble study completed in July, holter monitor completed without signs of a. fib. Will hold off repeating echo at this time. -Ordered Rosuvastatin 10mg. Fasting lipid panel ordered. -Patient strongly opposed to statin due to concern of side effects. Patient states he may consider PCSK9 inhibitor. -DAPT recommended for ABCD2 score >4, patient already on DAPT due to recent coronary artery stent CAD | S/P LAD Stent 09/2023 -Continue home aspirin and Brillinta -Follows with [facility] [place], Dr. Geiger. Cardiac Cath and Stent completed at [facility]. Atrial Paroxysmal Tachycardia -Identified on holter monitor in the past -Continue propranolol Admit to Med/Tele Code Status: Full Diet: Heart Healthy History of Present Illness Primary Care Provider: Phil Godfrey DO Wan Royal is a 53 year-old male with a PMH of TIA, hypercholesterolemia, GERD, BPH, hodgkin's lymphoma, CAD (s/p cardiac stent placement 09/06/23) who presented to the ER for concerns of stroke like symptoms. He notes that he has felt a bit "off" all day without specific symptoms, but fell asleep at 10:30pm and awoke 30 minutes later with slurring of speech, right sided weakness of upper and lower extremities, as well as some instability with walking. He notes that these symptoms were somewhat similar to his TIA in July 2023, but those symptoms came and went in a much shorter time frame (<1 hr). He notes that he has had ongoing issues with dizziness which is why he recently saw a neurologist at [facility]. He also recently established with cardiology locally (Dr. Geiger), patient has been taking aspirin and Brillinta since his cardiac stent was placed in early September. He was recommended to start a statin as well, patient has been strongly opposed to this but was willing to consider a PCSK9 inhibitor. He also endorses that he routinely fasts for 36 hour periods which is how he lost over 100 pounds, although has not done this as often as of recent. He states that right now his symptoms have improved, although his speech still "sounds off" and has some numbness in the right side of his face. He just ambulated to the bathroom and was able to walk there but did feel somewhat unsteady. ED Course: -[facility] contacted -CT head, CTA head and neck completed- no acute abnormalities Allergies Allergy/AdvReac Type Severity Reaction Status Date / Time azithromycin Allergy Intermediate Rash Verified 10/01/23 23:47 cephalexin Allergy Intermediate RASH / Verified 10/01/23 23:47 ITCHY clindamycin Allergy Intermediate RASH Verified 10/01/23 23:47 tamsulosin [From Flomax] AdvReac Severe BACK Verified 10/01/23 23:47 MUSCLES WEAKENED, PINCHING NERVES Home Medications Medication Instructions Recorded Confirmed Type aspirin 81 mg tablet,delayed 81 mg PO DAILY 01/16/19 10/01/23 History release docusate sodium 50 mg capsule 50 mg PO DAILY 09/06/23 10/01/23 History (Colace Clear) nitroglycerin 0.4 mg sublingual 0.4 mg sublingual Q5M PRN Chest 09/11/23 10/01/23 History tablet Pain propranolol 40 mg tablet 40 mg PO TID 09/11/23 10/01/23 History ticagrelor 90 mg tablet (Brilinta) 90 mg PO BID 09/11/23 10/01/23 History omega-3 fatty acids 1,000 mg 1,000 mg PO DAILY 10/01/23 10/01/23 History capsule Past Med/Surg History Medical History (Updated 10/02/23 @ 09:12 by Ifeanyi Chau MD) Acute ischemic stroke Hypertensive disorder Chest pain Benign prostate hyperplasia Umbilical hernia 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 Radiation completed 05/17/2016 received 3600 cGy." On 03/30/16 13:26 Veroseann Solomon wrote "DIAGNOSIS: Nodular lymphocyte predominant hodgkins lymhoma, left neck, level IA, stage IA" Family History (Updated 09/06/23 @ 11:10 by Lilia Harris) Father Hypertension Myocardial infarction Mother Hypertension Stroke Social History (Updated 02/22/22 @ 12:56 by Joelle Levin MD) Smoking Status: Never smoker Preferred Language: Syriac marital status: current occupational status: employed Feels Safe at Home: Yes Review of Systems Review of Systems: as per above Physical Exam Constitutional: WD/WN, vitals as above Eyes: + anicteric sclerae and PERRL; no conjun ctival abnormality ENMT: Ears: no external ear abnormality Nose: no external nose abnormality Moist mucous membranes Respiratory: normal respiratory effort, lungs clear to auscultation Cardiovascular: Rate/Rhythm: regular rate and regular rhythm Extremities: no edema Gastrointestinal (Abdomen): Abdomen nondistended, soft. Musculoskeletal: Moves all limbs independently Skin: no rashes, warm and dry Neurologic: CN's II-XI intact bilaterally, moves all extremities and awake; no focal motor deficits Speech / Cognition: + abnormal speech Upper and lower extremities 5/5 strength Psychiatric: A+Ox3, euthymic affect Results & Data Results & Data Vital Signs (Past 12 Hours) Vital Signs Temp Pulse Pulse Resp BP BP Pulse Ox 10/02/23 00:51 61 18 157/89 H 99 10/02/23 00:20 62 18 154/81 H 98 10/02/23 00:00 67 19 150/95 H 98 10/01/23 23:53 76 22 98 10/01/23 23:53 98 10/01/23 23:53 64 22 155/93 H 96 10/01/23 23:52 64 18 155/93 H 98 10/01/23 23:36 62 10/01/23 23:25 36.1 C L 86 18 211/116 H 97 O2 Del Method 10/02/23 00:51 Room Air 10/02/23 00:20 Room Air 10/02/23 00:00 Room Air 10/01/23 23:53 Room Air 10/01/23 23:53 Room Air 10/01/23 23:53 Room Air 10/01/23 23:52 Room Air 10/01/23 23:36 10/01/23 23:25 Room Air Diagnostic Findings Head CT 10/01/23 23:29 CR Exam(s): CT HEAD Without Contrast EXAM: CT Head Without Intravenous Contrast CLINICAL HISTORY: Reason for exam: dizziness; R side numbness. TECHNIQUE: Axial computed tomography images of the head/brain without intravenous contrast. Automated exposure control was utilized for the study. A dose lowering technique was utilized adhering to the principles of ALARA. COMPARISON: 06/07/2011. FINDINGS: Brain: No acute stroke. No hemorrhage. No abnormal extra-axial fluid collection. No significant white matter disease. Ventricles: No hydrocephalus. No midline shift. Bones/joints: Unremarkable. No acute fracture. Soft tissues: Unremarkable. Sinuses: Unremarkable as visualized. No acute sinusitis. IMPRESSION: No acute abnormality. Communications: Call Doctor Stroke Electronically signed by: Phong Bowers M.D. 10/02/23 00:02 AM Head CTA 10/01/23 23:29 CR Exam(s): CTA HEAD With Contrast IV Amt: 118 ML [id number] EXAM: CT Angiography Head With Intravenous Contrast CLINICAL HISTORY: Reason for exam: dizziness; R side numbness. TECHNIQUE: Axial computed tomographic angiography images of the head with intravenous contrast. CTDI is 37.51 mGy and DLP is 624.41 mGy-cm. Automated exposure control was utilized for the study. A dose lowering technique was utilized adhering to the principles of ALARA. MIP reconstructed images were created and reviewed. CONTRAST: Patient received 118 ML [id number] of IV contrast COMPARISON: No relevant prior studies available. FINDINGS: Right internal carotid artery: No acute findings. Intracranial segment is patent with no significant stenosis. No aneurysm. Right anterior cerebral artery: Unremarkable. No occlusion or significant stenosis. No aneurysm. Right middle cerebral artery: Unremarkable. No occlusion or significant stenosis. No aneurysm. Right posterior cerebral artery: Unremarkable. No occlusion or significant stenosis. No aneurysm. Left internal carotid artery: No acute findings. Intracranial segment is patent with no significant stenosis. No aneurysm. Left anterior cerebral artery: Unremarkable. No occlusion or significant stenosis. No aneurysm. Left middle cerebral artery: Unremarkable. No occlusion or significant stenosis. No aneurysm. Left posterior cerebral artery: Unremarkable. No occlusion or significant stenosis. No aneurysm. IMPRESSION: No large vessel occlusion. Communications: Call Doctor Stroke Electronically signed by: Elvin Cavazos MD 10/02/23 00:05 AM Neck CTA 10/01/23 23:29 CR Exam(s): CTA NECK With Contrast IV Amt: 118 ML OPTIRAY 320 EXAM: CT Angiography Neck With Intravenous Contrast CLINICAL HISTORY: Reason for exam: R sided weakness; dizziness. TECHNIQUE: Routine carotid CT angiography protocol was performed with intravenous contrast. NASCET criteria using the distal ICAs for comparison were used for evaluation of stenoses. CTDI is 37.51 mGy and DLP is 624.41 mGy-cm. Automated exposure control was utilized for the study. A dose lowering technique was utilized adhering to the principles of ALARA. MIP reconstructed images were created and reviewed. CONTRAST: Patient received 118 ML OPTIRAY 320 of IV contrast COMPARISON: None. FINDINGS: VASCULATURE: Right common carotid artery: Unremarkable. No occlusion or significant stenosis. No dissection. Right internal carotid artery: Unremarkable. Extracranial segment is patent with no occlusion or significant stenosis. No dissection. Right external carotid artery: Unremarkable. No occlusion. Right vertebral artery: Unremarkable. No occlusion or significant stenosis. No dissection. Left common carotid artery: Unremarkable. No occlusion or significant stenosis. No dissection. Left internal carotid artery: Unremarkable. Extracranial segment is patent with no occlusion or significant stenosis. No dissection. Left external carotid artery: Unremarkable. No occlusion. Left vertebral artery: Unremarkable. No occlusion or significant stenosis. No dissection. IMPRESSION: No large vessel occlusion. Communications: Call Doctor Stroke Electronically signed by: Elvin Cavazos MD 10/02/23 00:05 AM Supervising Physician Co-Signing Physician Notes Patient seen and examined, chart reviewed, case discussed with Dr. Russo and I agree with the assessment and plan as above. In brief, patient is a 29yo male with history of TIA, HLP, CAD with recent stent placement on 09/06/23 presenting with neurologic symptoms that started around 23:00 after he woke from a nap. He noted slurring of speech as well as weakness and clumsiness of his RUE and RLE. Patient hypertensive on arrival. Code Stroke activated. CT of the Head as well as CTA Head and Neck were unremarkable. Patient was not a candidate for TNKas given his low NIHSS on arrival as well as his use of ASA and Brillinta. Upon arrival to the floor patient noted a worsening of his symptoms - predominantly worsening of slurred speech and some blurry vision in his right eye. Another Code Stroke was activated. Patient was not re-imaged but MRI was viewed by Radiology as well as Stroke Neurology. Thought to have an acute left pontine CVA by Neurology On exam patient is afebrile, mildly hypertensive Skin - no rash HEENT- MMM, neck supple Heart - +S1/S2, regular, no m/r/g Lungs - CTA Abd - soft, NT/ND Ext - warm, well perfused Neuro - patient with slurred speech, slow at times with some word-finding difficulties, mild right facial droop noted, CN II-XII intact, sensation to light touch intact and MS 5/5 in UE/LE bilaterally Labs and images reviewed Assessment/Plan Acute ischemic stroke likely with stuttering symptoms. Patient has already taken his ASA and Brillinta today. He does not wish to take a statin due to concern for side effects. Will admit to PCU He had an echocardiogram with negative bubble study on 07/09/23. Will not repeat this study Continue Neuro checks, NIHSS per protocol. Speech/Swallow evaluation Continue ASA and Brillinta as prescribed. Encourage use of statin. Explained a bit to patient and about benefit of statins and plaque stabilization in both CAD and neurovascular disease. They will think it over and discuss Continue Propranolol. Allow for permissive hypertension PT/OT evaluation Remainder as above Resident Activity Tracking Resident Involvement: Resident Care Provided Care Provided: Adult Hospital Medicine
[2023-10-02] MEDS ORDERED: POLYETHYLENE (MIRALAX) 17 GM PACK PO PRN (01:48)
[2023-10-02] MEDS ORDERED: NITROGLYCERIN SL 0.4 MG/TAB TAB SL PRN (01:48)
[2023-10-02] MEDS ORDERED: ACETAMINOPHEN 325 MG TAB PO PRN (01:48)
[2023-10-02] MEDS ORDERED: GADOBUTROL 65ML VIAL IV ONE (03:56)
--- NOTE | 2023-10-02 05:10 | Magnetic Resonance Report ---
Exam(s): MRI HEAD W/WO Contrast IV Amt: 12cc gadavist EXAM: MR Head Without and With Intravenous Contrast CLINICAL HISTORY: Reason for exam: R sided numbness; hx of Hodgkin's lymphoma. TECHNIQUE: Magnetic resonance images of the head/brain without and with intravenous contrast in multiple planes. CONTRAST: Patient received 12cc gadavist of IV contrast COMPARISON: No relevant prior studies available. FINDINGS: Brain: No evidence of restricted diffusion to suggest an acute ischemic process. Patchy foci of T2 prolongation within the supratentorial white matter. Findings likely relate to sequelae of chronic microvascular ischemic disease. Demyelinating, posttraumatic, amongst other etiologies, also possible. No hemorrhage. Ventricles: Unremarkable. No ventriculomegaly. Bones/joints: Unremarkable. No acute fracture. Sinuses: Unremarkable as visualized. Mastoid air cells: Unremarkable as visualized. No mastoid effusion. Orbits: Unremarkable as visualized. IMPRESSION: 1. No evidence of restricted diffusion to suggest an acute ischemic process. 2. Patchy foci of T2 prolongation within the supratentorial white matter. Findings likely relate to sequelae of chronic microvascular ischemic disease. Demyelinating, posttraumatic, amongst other etiologies, also possible. 3. No evidence of abnormal enhancement. Electronically signed by: Joseph Palmer MD 10/02/23 05:10 AM
[2023-10-02 05:33] LABS: Basophils # (auto) 0.04 K/uL (0.00-0.20); Basophils % (auto) 0.5 %; Eosinophils # (auto) 0.17 K/uL (0.00-0.50); Eosinophils % (auto) 1.9 %; Hematocrit (blood only) 41.8 % (42.0-52.0); Immature Granulocytes # (auto) 0.03 K/uL (0.01-0.20); Immature Granulocytes % (auto) 0.3 %; Lymphocytes % (auto) 19.5 %; Mean Corpuscular Hemoglobin 30.5 pg (25.0-34.0); Mean Corpuscular Hgb Conc 35.9 g/dL (32.0-36.0); Mean Platelet Volume 11.3 fL (9.4-12.4); Monocytes # (auto) 0.43 K/uL (0.11-0.59); Monocytes % (auto) 4.9 %; Neutrophils # (auto) 6.36 K/uL (1.40-6.50); Neutrophils % (auto) 72.9 %; Platelet Count 166 K/uL (130-400); RDW Coefficient of Variation 13.6 % (11.5-14.5); RDW Standard Deviation 42.2 fL (36.4-46.3); Red Blood Count 4.92 M/uL (4.70-6.10); White Blood Count 8.73 K/ul (4.8-10.8)
[2023-10-02] MEDS: LACTATED RINGER'S 1,000 ML IV SCH ×2 (05:33→13:56)
[2023-10-02 05:38] LABS: BUN Creatinine Ratio 20.4 (10-20); Calcium 9.1 mg/dl (8.6-10.3); Chol HDL Ratio 3.8 (0-5); Creatinine Clr Calc Pharmacy 108.3 ml/min; Est GFR (African American) 100.2 ml/min; Est GFR (Non-African American) 86.4 ml/min; Potassium 4.3 mmol/L (3.5-5.1)
--- NOTE | 2023-10-02 06:17 | Magnetic Resonance Report ---
Exam(s): MRI C SPINE EXAM: MR Cervical Spine Without Intravenous Contrast CLINICAL HISTORY: Reason for exam: R sided numbness/weakness. TECHNIQUE: Magnetic resonance images of the cervical spine without intravenous contrast in multiple planes. COMPARISON: No relevant prior studies available. FINDINGS: Vertebrae: Unremarkable. No acute fracture. Spinal cord: Unremarkable. Normal signal. Soft tissues: Unremarkable. DISCS/SPINAL CANAL/NEURAL FORAMINA: C2-C3: Mild spinal canal stenosis measuring 1.0 cm. Moderate left and no right neural foraminal stenosis, primarily caused by uncovertebral hypertrophy. C3-C4: 1.5 mm disc bulge. Mild spinal canal stenosis measuring 9 mm. Mild anterior cord deformity. No right and moderate left neuroforaminal stenosis, primarily caused by uncovertebral hypertrophy. C4-C5: Broad-based central disc herniation measuring 2 mm. Mild spinal canal stenosis measuring 9 mm. Mild anterior cord deformity. Mild left and no right neuroforaminal stenosis. Anterior osteophyte noted. C5-C6: Central disc herniation, superimposed on disc bulge, the combination of which measures 1.5 mm. Mild spinal stenosis measuring 9 mm. Annular fissure noted. Mild bilateral neuroforaminal stenosis. Anterior osteophyte noted. C6-C7: 2 mm disc bulge. No spinal canal stenosis. No right and mild left neuroforaminal stenosis. C7-T1: Unremarkable. No significant disc disease. No stenosis. IMPRESSION: Degenerative changes as described. Electronically signed by: Joseph Palmer MD 10/02/23 06:16 AM
--- NOTE | 2023-10-02 06:18 | Communication Note ---
Date of Service: October 02, 2023 Patient began experiencing additional symptoms of blurry vision as well as worsening of right sided sensation and slurred speech. Stroke alert was called at approximately 4:30a.m. I called and spoke with the [facility] neurologist who requested we send our MRI images to [facility]. Dr. Blum called back after reviewing the MRI images and identified a left pontine stroke, he confirmed that patient is out of the window for thrombolytics. Dr. Blum recommended neurology consult, IV hydration, q2h neuro checks, and initiate statin treatment.
[2023-10-02 07:33] LABS: Estimated Average Glucose 108 mg/dl; Hemoglobin A1C 5.4 % (4.5-5.6)
[2023-10-02] MEDS ORDERED: ROSUVASTATIN CALCIUM 10 MG TAB PO SCH (09:00)
--- NOTE | 2023-10-02 09:08 | Neurology Consultation ---
Date of Consultation October 02, 2023 Assessment & Plan (1) Acute ischemic stroke: History of Present Illness Attending Physician: Dragan Andre MD History of Present Illness pt this morning still having slurred speech and rt side subtle weakness , although improvement compare to yesterday. overall clinically stable. admission HPI: Wan Royal is a 53 year-old male with a PMH of TIA, hyper cholesterolemia, GERD, BPH, hodgkin's lymphoma, CAD (s/p cardiac stent placement 09/06/23) who presented to the ER for concerns of stroke like symptoms. He notes that he has felt a bit "off" all day without specific symptoms, but fell asleep at 10:30pm and awoke 30 minutes later with slurring of speech, right sided weakness of upper and lower extremities, as well as some instability with walking. He notes that these symptoms were somewhat similar to his TIA in July 2023, but those symptoms came and went in a much shorter time frame (<1 hr). He notes that he has had ongoing issues with dizziness which is why he recently saw a neurologist at [facility]. He also recently established with cardiology locally (Dr. Geiger), patient has been taking aspirin and Brillinta since his cardiac stent was placed in early September. He was recommended to start a statin as well, patient has been strongly opposed to this but was willing to consider a PCSK9 inhibitor. He also endorses that he routinely fasts for 36 hour periods which is how he lost over 100 pounds, although has not done this as often as of recent. He states that right now his symptoms have improved, although his speech still "sounds off" and has some numbness in the right side of his face. He just ambulated to the bathroom and was able to walk there but did feel somewhat unsteady. ED Course: -[facility] contacted -CT head, CTA head and neck completed- no acute abnormalities Allergies Allergy/AdvReac Type Severity Reaction Status Date / Time azithromycin Allergy Intermediate Rash Verified 10/01/23 23:47 cephalexin Allergy Intermediate RASH / Verified 10/01/23 23:47 ITCHY clindamycin Allergy Intermediate RASH Verified 10/01/23 23:47 tamsulosin [From Flomax] AdvReac Severe BACK Verified 10/01/23 23:47 MUSCLES WEAKENED, PINCHING NERVES Home Medications Medication Instructions Recorded Confirmed Type aspirin 81 mg tablet,delayed 81 mg PO DAILY 01/16/19 10/01/23 History release docusate sodium 50 mg capsule 50 mg PO DAILY 09/06/23 10/01/23 History (Colace Clear) nitroglycerin 0.4 mg sublingual 0.4 mg sublingual Q5M PRN Chest 09/11/23 10/01/23 History tablet Pain propranolol 40 mg tablet 40 mg PO TID 09/11/23 10/01/23 History ticagrelor 90 mg tablet (Brilinta) 90 mg PO BID 09/11/23 10/01/23 History omega-3 fatty acids 1,000 mg 1,000 mg PO DAILY 10/01/23 10/01/23 History capsule Patient History Medical History (Updated 10/02/23 @ 09:12 by Ifeanyi Chau MD) Acute ischemic stroke Hypertensive disorder Chest pain Benign prostate hyperplasia Umbilical hernia 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 Radiation completed 05/17/2016 received 3600 cGy." On 03/30/16 13:26 Julio Cesar Solomon wrote "DIAGNOSIS: Nodular lymphocyte predominant hodgkins lymhoma, left neck, level IA, stage IA" Family History (Updated 09/06/23 @ 11:10 by Lilia Harris) Father Hypertension Myocardial infarction Mother Hypertension Stroke Social History (Updated 02/22/22 @ 12:56 by Joelle Levin MD) Smoking Status: Never smoker Preferred Language: Irish marital status: current occupational status: employed Feels Safe at Home: Yes Review of Systems Review of Systems: All systems reviewed & are unremarkable except as noted in Subjective Constitutional: as per Subjective / HPI Eyes: as per Subjective / HPI Ear, Nose, Mouth, Throat: as per Subjective / HPI Respiratory: as per Subjective / HPI Cardiovascular: as per Subjective / HPI Gastrointestinal: as per Subjective / HPI Musculoskeletal: as per Subjective / HPI Integumentary: as per Subjective / HPI Neurologic: as per Subjective / HPI Psychiatric: as per Subjective / HPI Endocrine: as per Subjective / HPI Hematologic / Lymphatic: as per Subjective / HPI Allergy / Immunological: as per Subjective / HPI Exam (Neuro) Physical Exam: HEENT: normocephalic Neuro: Mental: AOx4, fluent speech but dyarthric speech, normal comprehension, no apraxia, no L/R confusion, no neglect CN: PERRL, Full EOM, symmetric face, intact sensation t/o face, midline T/U/P, 5/5 SCM/traps. Motor: No abnormal movements, normal tone and bulk, 4+/5 RUE and RLE t/o. 5/5 t/o left side upper and lower. Sens: intact to touch b/l grossly Coord: intact FNT b/l DTR: 2+ sym b/l Impression: 53 yo male with acute ischemic stroke at the left medial pontine area with mild rt hemiparesis. The mri brain report is read as negative scan but upon review of the image, there is positive ischemic stroke in the cyndi. I reviewed the mri with oncall radiology again this morning and he agrees that the lesion is real and he does have ischemic stroke as noted. Recommendations: 1. Standard stroke work up as planned 2. antiplatelet therapy: pt on ASA and brillinta, continue as now. 3. Images:prior recent echo and holter n egative. CTA head/neck negative. 4. Permissive Hypertension for next 24 h rs. Keep SBP goal range less than 220. Avoid hypotension. Do not stop beta-rich if on it. 6. Long-term SBP goal less than 130. 7. Plenty of hydration including IV flui d if possible (use isotonic solution) next 1-2 days. Avoid hypovolemia and hypotension. 8. Initiate DVT prevention therapy. 9. Avoid hypoglycemia, serum glucose goa l during hospitalization: 140-180. 10. Long-term HgA1c goal less than 7. 11. Start statin if not on it and no abs olute contraindication, long-term LDL goal less than 70. 12. Head of bed up 30 degrees if possibl e. 13. Stroke education by nursing and appr opriate staff. 15. Fall precaution and aspiration preca ution. 16. Consult physical and occupational th erapy and speech path evaluation. Chart reviewed I have spent more than 50% educating patient about potential diagnosis and neurological evaluation and coordinating care with patient's treatment team. Total time spent (including chart review and coordination of care): 60 min (this includes chart review). Results & Data Vital Signs (Past 12 Hours) Vital Signs Temp Pulse Pulse Resp BP BP Pulse Ox 10/02/23 08:31 36.3 C L 63 16 164/95 H 95 10/02/23 05:27 59 L 16 170/100 H 97 10/02/23 04:40 63 18 168/97 H 99 10/02/23 04:30 36.4 C L 59 L 18 203/106 H 99 10/02/23 00:51 61 18 157/89 H 99 10/02/23 00:20 62 18 154/81 H 98 10/02/23 00:00 67 19 150/95 H 98 10/01/23 23:53 76 22 98 10/01/23 23:53 98 10/01/23 23:53 64 22 155/93 H 96 10/01/23 23:52 64 18 155/93 H 98 10/01/23 23:36 62 10/01/23 23:25 36.1 C L 86 18 211/116 H 97 O2 Del Method 10/02/23 08:31 Room Air 10/02/23 05:27 Room Air 10/02/23 04:40 Room Air 10/02/23 04:30 Room Air 10/02/23 00:51 Room Air 10/02/23 00:20 Room Air 10/02/23 00:00 Room Air 10/01/23 23:53 Room Air 10/01/23 23:53 Room Air 10/01/23 23:53 Room Air 10/01/23 23:52 Room Air 10/01/23 23:36 10/01/23 23:25 Room Air PG Care Time/CCT Total # of Minutes Spent Total Time Spent with Patient: Total time spent is greater than 50% in coordination of care (as documented) at patient's floor/unit and/or counseling patient: Coding Level of Care Code 54447 IN/OBS CONSULT LVL 4,60M Diagnoses Acute ischemic stroke I63.9
--- NOTE | 2023-10-02 12:34 | Billing Data ---
Date of Service October 02, 2023 Coding Level of Care Code 45791 INT INP/OBS CARE
[2023-10-02] MEDS: ASPIRIN 81 MG ECTAB PO SCH (12:35)
[2023-10-02] MEDS: TICAGRELOR 90 MG TAB PO SCH ×2 (12:35→21:32)
[2023-10-02] MEDS: OMEGA-3 (PURIFIED FISH OIL) 1 GM CAP PO SCH (12:36)
[2023-10-02] MEDS: PROPRANOLOL HCL 20 MG TAB PO SCH ×3 (12:36→21:32)
--- NOTE | 2023-10-02 13:12 | Hospitalist Progress Note ---
"Date of Service October 02, 2023 Assessment & Plan (1) Numbness and tingling of right arm: (2) Stroke-like symptoms: (3) Stented coronary artery: (4) Paroxysmal SVT (supraventricular tachycardia): (5) Ascending aorta dilatation: (6) Hypercholesterolemia: (7) Hypertensive disorder: (8) CAD (coronary artery disease): Plan Acute left pontine stroke -CTA head and neck without acute findings or evidence of large vessel disease -MRI showed evidence of acute left pontine stroke -Neurology on consult, PT recommendations -Continue aspirin and Brilinta and also rosuvastatin, increased to 20 mg daily -Speech and physical therapy CAD | S/P LAD Stent 09/2023 -Continue home aspirin and Brillinta -Follows with [facility], Dr. Geiger. Cardiac Cath and Stent completed at [facility]. Atrial Paroxysmal Tachycardia -Identified on holter monitor in the past -Continue propranolol Admit to Med/Tele Code Status: Full Diet: Heart Healthy Admission and Anticipated Discharge Date Admission Date: October 02, 2023 Subjective Patient seen and examined, still have some word finding difficulty circumoral weakness. Review of Systems Review of Systems: All systems reviewed are negative, apart from the ones contained in the history. Physical Exam Physical Exam: The patient is awake, alert and oriented 3, well developed and well nourished, normocephalic and atraumatic, lying in bed and in no acute distress. HEENT--PERRL, EOMI, mucous membranes and oropharynx mildly dry Neck--supple. No JVD. No bruits. Thyroid normal, trachea midline, no adenopathy. Heart--normal S1 and S2. No murmurs, rubs or gallops. Lungs--clear bilaterally, no respiratory distress, no accessory muscle use. Abdomen--normal bowel sounds and soft. Mild epigastric and left sided abdominal pain Extremities--no cyanosis or clubbing. No edema. Dermatologic--normal skin turgor, normal color, no abnormal lymph nodes, no rash. Neurologic--cranial nerves II through XII grossly intact. Rheumatologic--normal range of motion. Psychiatric--normal affect. Results & Data Results & Data Vital Signs (Past 12 Hours) Vital Signs Temp Pulse Pulse Resp BP Pulse Ox O2 Del Method 10/02/23 11:56 97.7 F 65 16 175/85 H 95 Room Air 10/02/23 08:31 97.3 F L 63 16 164/95 H 95 Room Air 10/02/23 05:50 56 L 10/02/23 05:30 57 L 10/02/23 05:27 59 L 16 170/100 H 97 Room Air 10/02/23 04:40 63 18 168/97 H 99 Room Air 10/02/23 04:30 97.5 F L 59 L 18 203/106 H 99 Room Air PG Care Time/CCT Total # of Minutes Spent Total Time Spent with Patient: Total time spent is greater than 50% in coordination of care (as documented) at patient's floor/unit and/or counseling patient: Coding Level of Care Code 81678 SUB INP/OBS CARE 2/35MIN Diagnoses Numbness and tingling of right arm R20.0; R20.2 Stroke-like symptoms R29.90 Stented coronary artery Z95.5 Paroxysmal SVT (supraventricular tachycardia) I47.10 Ascending aorta dilatation I77.810 Hypercholesterolemia E78.00 Hypertensive disorder I10 CAD (coronary artery disease) I25.10 Time Spent (min) 35"
--- NOTE | 2023-10-02 15:09 | Electrocardiogram Report ---
Test Reason : Blood Pressure : / mmHG Vent. Rate : 061 BPM Atrial Rate : 061 BPM P-R Int : 144 ms QRS Dur : 094 ms QT Int : 420 ms P-R-T Axes : 051 014 018 degrees QTc Int : 422 ms Normal sinus rhythm Normal ECG When compared with ECG of 16-FEB-2022 22:05, No significant change was found Confirmed by Jr Geiger ([id number]) on 10/02/2023 3:09:38 PM Referred By: REFERRED SELF Confirmed By:Jr Geiger
--- NOTE | 2023-10-02 15:10 | Electrocardiogram Report ---
Test Reason : Blood Pressure : / mmHG Vent. Rate : 056 BPM Atrial Rate : 056 BPM P-R Int : 160 ms QRS Dur : 086 ms QT Int : 434 ms P-R-T Axes : 063 004 006 degrees QTc Int : 418 ms Poor data quality, interpretation may be adversely affected Sinus bradycardia Otherwise normal ECG When compared with ECG of 01-OCT-2023 23:35, (unconfirmed) No significant change was found Confirmed by Jr Geiger ([id number]) on 10/02/2023 3:09:45 PM Referred By: REFERRED SELF Confirmed By:Jr Geiger
[2023-10-03] MEDS: TICAGRELOR 90 MG TAB PO SCH (07:33)
[2023-10-03] MEDS: PROPRANOLOL HCL 20 MG TAB PO SCH (07:33)
[2023-10-03] MEDS: ASPIRIN 81 MG ECTAB PO SCH (07:34)
--- NOTE | 2023-10-03 08:38 | Neurology Progress Note ---
Date of Service October 03, 2023 Assessment & Plan (1) Acute ischemic stroke: Admission and Anticipated Discharge Date Admission Date: October 02, 2023 Subjective pt this morning feeling much better. speech improving and his rt side strength improving per pt. pt again drinking coffee. he is heavy coffee drinker. Results & Data Vital Signs (Past 12 Hours) Vital Signs Temp Pulse Pulse Resp BP Pulse Ox O2 Del Method 10/03/23 07:49 36.4 C L 53 L 16 164/107 H 98 Room Air 10/03/23 06:00 58 L 10/03/23 03:00 36.6 C 58 L 18 146/83 H 98 Room Air 10/02/23 22:08 56 L 10/02/23 22:00 36.5 C 54 L 20 161/90 H 97 Room Air Exam (Neuro) Physical Exam: Neuro: Mental: AOx4, fluent speech but dysarthric speech, normal comprehension, no apraxia, no L/R confusion, no neglect CN: PERRL, Full EOM, symmetric face, intact sensation t/o face, midline T/U/P, 5/5 SCM/traps. Motor: No abnormal movements, normal tone and bulk, 4+/5 RUE and RLE t/o. 5/5 t/o left side upper and lower. Sens: intact to touch b/l grossly Coord: intact FNT b/l DTR: 2+ sym b/l Impression: 53 yo male with acute ischemic stroke at the left medial pontine area with mild rt hemiparesis in setting of anxiety and high caffeine intake. Recommendations: encouraged pt to cut back on coffee but pt refusing. continue DAPT as now. LDL goal less than 70 continue statin SBP goal less than 140 improve anxiety pt overall stable. continue PT/OT/speech therapy as outpt. he can f/u with me as outpt when discharged as routine follow up. please call again if new question. Chart reviewed I have spent more than 50% educating patient about potential diagnosis and neurological evaluation and coordinating care with patient's treatment team. Total time spent (including chart review and coordination of care): 50 min (this includes chart review). PG Care Time/CCT Total # of Minutes Spent Total Time Spent with Patient: Total time spent is greater than 50% in coordination of care (as documented) at patient's floor/unit and/or counseling patient: Coding Level of Care Code 54614 SUB INP/OBS CARE MIN Diagnoses Acute ischemic stroke I63.9
[2023-10-03] MEDS ORDERED: ROSUVASTATIN CALCIUM 20 MG TAB PO SCH (09:00)
[2023-10-03] MEDS: OMEGA-3 (PURIFIED FISH OIL) 1 GM CAP PO SCH (10:47)
--- NOTE | 2023-10-03 12:17 | Discharge Summary ---
Date of Service October 03, 2023 Admission HPI Per Admitting Provider Wan Royal is a 53 year-old male with a PMH of TIA, hypercholesterolemia, GERD, BPH, hodgkin's lymphoma, CAD (s/p cardiac stent placement 09/06/23) who presented to the ER for concerns of stroke like symptoms. He notes that he has felt a bit "off" all day without specific symptoms, but fell asleep at 10:30pm and awoke 30 minutes later with slurring of speech, right sided weakness of upper and lower extremities, as well as some instability with walking. He notes that these symptoms were somewhat similar to his TIA in July 2023, but those symptoms came and went in a much shorter time frame (<1 hr). He notes that he has had ongoing issues with dizziness which is why he recently saw a neurologist at [facility]. He also recently established with cardiology locally (Dr. Geiger), patient has been taking aspirin and Brillinta since his cardiac stent was placed in early September. He was recommended to start a statin as well, patient has been strongly opposed to this but was willing to consider a PCSK9 inhibitor. He also endorses that he routinely fasts for 36 hour periods which is how he lost over 100 pounds, although has not done this as often as of recent. He states that right now his symptoms have improved, although his speech still "sounds off" and has some numbness in the right side of his face. He just ambulated to the bathroom and was able to walk there but did feel somewhat unsteady. ED Course: -[facility] contacted -CT head, CTA head and neck completed- no acute abnormalities Principal Diagnosis Acute stroke Discharge Exam The patient is awake, alert and oriented 3, well developed and well nourished, normocephalic and atraumatic, lying in bed and in no acute distress. HEENT--PERRL, EOMI, mucous membranes and oropharynx mildly dry Neck--supple. No JVD. No bruits. Thyroid normal, trachea midline, no adenopathy. Heart--normal S1 and S2. No murmurs, rubs or gallops. Lungs--clear bilaterally, no respiratory distress, no accessory muscle use. Abdomen--normal bowel sounds and soft. Mild epigastric and left sided abdominal pain Extremities--no cyanosis or clubbing. No edema. Dermatologic--normal skin turgor, normal color, no abnormal lymph nodes, no rash. Neurologic--cranial nerves II through XII grossly intact. Rheumatologic--normal range of motion. Psychiatric--normal affect. Discharge Data Allergies Allergy/AdvReac Type Severity Reaction Status Date / Time azithromycin Allergy Intermediate Rash Verified 10/01/23 23:47 cephalexin Allergy Intermediate RASH / Verified 10/01/23 23:47 ITCHY clindamycin Allergy Intermediate RASH Verified 10/01/23 23:47 tamsulosin [From Flomax] AdvReac Severe BACK Verified 10/01/23 23:47 MUSCLES WEAKENED, PINCHING NERVES Consultations 10/02/23 00:57 ED Decision to Admit Stat 10/02/23 06:18 Consult Neurology Routine Ordered Studies 10/01/23 23:29 CT head/brain wo con Stat CTA head w con [CT angio head w con] Stat CTA neck with con [CT angio neck with con] Stat 10/02/23 00:43 MRI Brain [MR brain wo/w con] Stat MRI Cervical [MR cervical spine wo con] Stat Hospital Course (1) Numbness and tingling of right arm: (2) Stroke-like symptoms: (3) Stented coronary artery: (4) Paroxysmal SVT (supraventricular tachycardia): (5) Ascending aorta dilatation: (6) Hypercholesterolemia: (7) Hypertensive disorder: (8) CAD (coronary artery disease): Plan Acute left pontine stroke -CTA head and neck without acute findings or evidence of large vessel disease -MRI showed evidence of acute left pontine stroke -Neurology on consult, PT recommendations -Continue aspirin and Brilinta and also rosuvastatin, increased to 20 mg daily -Speech and physical therapy -Plan is outpatient physical therapy, Occupational Therapy, speech therapy Also follow-up with neurology in 2 weeks- CAD | S/P LAD Stent 09/2023 -Continue home aspirin and Brillinta -Follows with [facility], Dr. Geiger. Cardiac Cath and Stent completed at [facility]. Atrial Paroxysmal Tachycardia -Identified on holter monitor in the past -Continue propranolol Admit to Med/Tele Code Status: Full Diet: Heart Healthy Total Time Total Time Spent Total Time Spent (In Minutes): 35 minutes Discharge Plan Discharge Items Patient Disposition: Home - Self-Care Reason For Visit: STROKE RULE OUT Discharge Diagnosis: Acute stroke Activity: Resume your previous activity Non-emergency contact: Primary Care Provider and Neurologist Call non-emergency contact if: you have any medication questions Follow-up/Referrals: Phil Godfrey, [Primary Care Provider] - Diet: Regular Addtl Attending Provider Instructions: Please make appointment for outpatient physical therapy, Occupational Therapy and speech therapy. Also follow-up with neurology in 2 weeks Pending Studies at Discharge: No Stand-Alone Forms: My [facility] [employer], Smoking Cessation Medications and DC Order Prescriptions: New rosuvastatin [Crestor] 20 mg Tablet 20 mg PO QAM 30 Days Qty: 30 0RF Continued Colace Clear 50 mg capsule 50 mg PO DAILY Brilinta 90 mg tablet 90 mg PO BID nitroglycerin 0.4 mg tablet, sublingual 0.4 mg sublingual Q5M PRN (Reason: Chest Pain) aspirin 81 mg Tablet,Delayed Release (Dr/Ec) 81 mg PO DAILY omega-3 fatty acids 1,000 mg Capsule 1,000 mg PO DAILY propranolol 40 mg tablet 40 mg PO TID Discharge Orders: Discharge Order (Routine); Ordered 10/03/23 Ordered By: Dragan Andre Admission Data Admit Date/Time: 10/02/23 01:32 Attending Provider: Dragan Andre Admit Provider: Trudy Russo Primary Care Provider: Phil Godfrey Other Providers: Colette Isidro; Ifeanyi Chau Coding Level of Care Code 59518 INP/OBS DISCH >30 MIN Diagnoses Numbness and tingling of right arm R20.0; R20.2 Stroke-like symptoms R29.90 Stented coronary artery Z95.5 Paroxysmal SVT (supraventricular tachycardia) I47.10 Ascending aorta dilatation I77.810 Hypercholesterolemia E78.00 Hypertensive disorder I10 CAD (coronary artery disease) I25.10 Time Spent (min) 35
== END 2023-10-03 13:53 | disposition home or self-care (01) ==
LOC: ED 23:21 → EDINP 23:21 → SUATTDRO 10-02 01:32 → 2N 10-02 01:47